=== PATIENT | female | born 1970 | race Caucasian/White ===

== ENCOUNTER 2024-04-26 11:39 | Emergency (ER) | payer OTHER ==
[~2024-04-26] VITALS: Ht 17.8 cm; Wt 86.4 kg
[2024-04-26 11:41] VITALS: TEMP 98.3
[2024-04-26 12:01] LABS: BASO % 0.5 % (0.0-2.0); EOS % 0.6 % (0.0-4.0); GRAN # 4.1 K/mm3 (1.4-6.5); GRAN % 62.3 % (42.2-75.2); HEMATOCRIT 39.5 % (37.0-47.0); HEMOGLOBIN 13.2 g/dl (12.5-16.0); INR 1.1 (0.8-3.0); LYMPH # 1.9 K/mm3 (1.2-3.4); LYMPH % 28.9 % (20.0-51.0); MEAN CELL VOLUME 92 fl (80.0-100.0); MEAN CORPUSCULAR HEMOGLOBIN 31 pg (27-31); MEAN CORPUSCULAR HGB CONC 33 g/dl (33.0-37.0); MEAN PLATELET VOLUME 11.4 fl (7.4-10.4); MONO # 0.5 K/mm3 (0.1-0.6); MONO % 7.1 % (1.7-9.3); PLATELET COUNT 256 K/mm3 (130-400); PROTHROMBIN TIME 11.6 SECONDS (9.7-12.8); RED BLOOD COUNT 4.31 M/mm3 (4.10-5.30)
[2024-04-26 12:19] LABS: BILIRUBIN,TOTAL 0.6 mg/dL (0.2-1.2); CALCIUM 9.3 mg/dL (8.4-10.2); CREATININE, serum 1.01 mg/dL (0.57-1.11); POTASSIUM 3.6 mEq/L (3.5-4.5); TOTAL PROTEIN 7.4 g/dl (6.2-8.1)
[2024-04-26] MEDS ORDERED: NS 100 ML IV SCH (12:27)
[2024-04-26] MEDS ORDERED: Iohexol 300 - 100 ML VIAL IV ONE (12:27)
[2024-04-26] MEDS ORDERED: LR 1,000 ML IV ONE (12:45)
[2024-04-26] MEDS ORDERED: Ketorolac 15 MG/ML VIAL IV ONE (13:15)
[2024-04-26 14:10] VITALS: BP 135/80; PULSE 74
== END 2024-04-26 14:10 | disposition home or self-care (01) ==
LOC: COL.ER 11:39
PROVIDERS: Family Medicine
DX: I95.1 Orthostatic hypotension (principal); E86.0 Dehydration; G43.909 Migraine, unspecified, not intractable, without status migrainosus
CPT/HCPCS: J0780; J1885; J7120; Q9967